=== PATIENT | male | born 1960 | race Caucasian/White ===

== ENCOUNTER 2021-04-01 12:00 | Emergency (ER) | payer SELFPAY ==
[~2021-04-01] VITALS: Ht 170.2 cm; Wt 70.3 kg
[2021-04-01 12:02] VITALS: BP 130/75
[2021-04-01 13:10] LABS: EOSINOPHILS % (AUTO) 1.7 % (0.0-8.0); HEMATOCRIT 47.1 % (42-54); LYMPHOCYTES % (AUTO) 19.7 % (21.0-51.0); MEAN CORPUSCULAR HEMOGLOBIN 31.9 pg (27.0-33.0); MEAN CORPUSCULAR HGB CONC 34.4 g/dL (32.0-36.0); MEAN CORPUSCULAR VOLUME 92.7 fL (79-99); MONOCYTES % (AUTO) 6.4 % (3.0-13.0); NEUTROPHILS % (AUTO) 70.9 % (40.0-77.0); PLATELET COUNT (AUTO) 261 K/uL (130-400); RED BLOOD CELL COUNT(AUTO) 5.08 MIL/uL (4.50-6.20); RED CELL DISTRIBUTION WIDTH 12.6 % (11.0-15.5); WHITE BLOOD COUNT (AUTO) 12.5 K/uL (4.8-10.8)
[2021-04-01 13:17] LABS: APPEARANCE,URINE Cloudy (CLEAR); BILIRUBIN,URINE Negative (NEGATIVE); COLOR,URINE Yellow (YELLOW); GLUCOSE, URINE (UA) 500 mg/dL (NEGATIVE); KETONES,URINE Negative (NEGATIVE); LEUKOCYTE ESTERASE ,URINE Negative (NEGATIVE); NITRATE,URINE Negative (NEGATIVE); OCCULT BLOOD,URINE Negative (NEGATIVE); PROTEIN,URINE POS 1+ mg/dL (NEGATIVE)
[2021-04-01 13:20] LABS: CREATININE 1.8 mg/dL (0.5-1.5)
[2021-04-01 13:24] LABS: ALBUMIN 4.5 g/dL (3.5-5.0); BILIRUBIN,TOTAL 0.3 mg/dL (0.2-1.0); TOTAL PROTEIN, SERUM 8.6 g/dL (6.0-8.3)
[2021-04-01 13:49] LABS: WBC,URINE None Seen /HPF (0-1)
[2021-04-01 13:50] LABS: BACTERIA,URINE None Seen /HPF (None Seen); SQUAMOUS EPITHELIAL CELL,UR Few /HPF (0-2)
[2021-04-01] MEDS ORDERED: ONDANSETRON 4MG INJ IVP ONE (14:15)
[2021-04-01] MEDS ORDERED: KETOROLAC 30MG VIAL (30MG/ML) IV ONE (14:15)
[2021-04-01] MEDS ORDERED: ONDANSETRON 4MG INJ ONE (15:44)
[2021-04-01] MEDS ORDERED: KETOROLAC 30MG VIAL (30MG/ML) ONE (15:45)
[2021-04-01] MEDS ORDERED: NAPR-1180 PO (15:55)
[2021-04-01 15:57] VITALS: BP 121/78
== END 2021-04-01 16:06 | disposition home or self-care (01) ==
LOC: EDH 12:00
DX: N43.3 Hydrocele, unspecified (principal); R74.8 Abnormal levels of other serum enzymes; E11.9 Type 2 diabetes mellitus without complications; I10 Essential (primary) hypertension; Z79.1 Long term (current) use of non-steroidal anti-inflammatories (NSAID)
CPT/HCPCS: 36415; 71045; 74176; 80053; 81001; 83690 ×2; 84484 ×2; 85025; 93005; 96374; 96375; 99285; J1885; J2405